=== PATIENT | female | born 1985 ===

== ENCOUNTER 2018-12-11 20:43 | Emergency (ER) | payer SELFPAY ==
[2018-12-11 20:53] VITALS: BP 111/70
--- NOTE | 2018-12-11 20:54 | Emergency Department Report ---
Blank Doc - Documentation Documentation: This is a 33-year-old female that presents with vaginal discharge and dysuria. This initial assessment/diagnostic orders/clinical plan/treatment(s) is/are subject to change based on patient's health status, clinical progression and re- assessment by fellow clinical providers in the ED. Further treatment and workup at subsequent clinical providers discretion. Patient/guardians urged not to elope from the ED as their condition may be serious if not clinically assessed and managed. Initial orders include: 1- Patient sent to [facility] for further evaluation and treatment 2- wet prep/GC 3- UA
[2018-12-11 21:15] LABS: HCG Qualitative,Urine Negative (Negative)
[2018-12-11 21:17] LABS: Bilirubin,Urine NEG (Negative); Blood,Urine NEG (Negative); Color,Urine Straw (Yellow); Protein,Urine <15 mg/dL mg/dL (Negative); Urobilinogen,Urine < 2.0 mg/dL (<2.0)
== END 2018-12-11 23:15 | disposition left against medical advice (07) ==
LOC: ED 20:43
DX: N89.8 Other specified noninflammatory disorders of vagina (principal); Z53.21 Procedure and treatment not carried out due to patient leaving prior to being seen by health care provider
CPT/HCPCS: 81001; 81025